=== PATIENT | male | born 1960 | race Caucasian/White ===

== ENCOUNTER 2020-07-02 10:51 | Inpatient (IN) | payer OTHER ==
[~2020-07-02] VITALS: Ht 190.5 cm; Wt 130.5 kg
[~2020-07-02 10:51] MED LIST: ALLO100T PO; LOSA100T8 PO; METO50TA7 PO; OMEP40CA97 PO; WARF-23 PO
[2020-07-02] MEDS ORDERED: methylPREDNISolone 125MG 2ML VIAL IV ONE (11:50)
[2020-07-02 12:23] LABS: BASO # 0.1 10^3/uL (0.0-0.2); BASO % 0.9 % (0.0-1.0); EOS % 0.3 % (0.0-3.0); HEMATOCRIT 50.9 % (42.0-52.0); HEMOGLOBIN 16.8 g/dl (13.5-17.5); LYMPH # 1.8 10^3/uL (1.5-5.0); LYMPH % 20.5 % (24.0-44.0); MEAN CORPUSCULAR HEMOGLOBIN 30.8 pg (27.0-33.0); MEAN CORPUSCULAR VOLUME 93.4 fl (80.0-96.0); MONO # 1.2 10^3/uL (0.0-0.8); MONO % 13.1 % (2.0-8.0); NEUTROPHILS # 5.6 10^3/uL (1.5-8.5); NEUTROPHILS % 63.5 % (36.0-66.0); PLATELET COUNT, AUTOMATED 312 10^3/uL (150-450); RED BLOOD COUNT 5.45 10^6/uL (4.30-6.10); WHITE BLOOD COUNT 8.8 10^3/uL (4.0-10.0)
[2020-07-02] MEDS: COMBIVENT RESPIMAT 100-20MCG INHALER 4GM INH SCH ×3 (12:24→12:45)
[2020-07-02 12:33] LABS: INR 1.26; PROTHROMBIN TIME 16.1 SECONDS (12.5-14.3)
[2020-07-02 12:34] LABS: PARTIAL THROMBOPLASTIN TIME 29.3 SECONDS (24.2-38.5)
[2020-07-02 12:36] LABS: D-DIMER QUANT 387.85 ng/ml (<500)
--- NOTE | 2020-07-02 12:45 | REP ---
INDICATION: DYSPNEA/COUGH COMPARISON: CT dated 06/15/2014 TECHNIQUE: Portable AP view of the chest FINDINGS: Chronic elevation to the right hemidiaphragm along with chronic bibasilar changes again noted. Subtle superimposed atelectasis cannot be excluded. No pneumothorax. No left effusion. Visualized portions of the mediastinum and cardiac silhouette are normal. Skeletal structures are intact. IMPRESSION: Chronic appearing changes. Cannot exclude subtle basilar atelectasis. <Electronically signed by Omega Negro > 07/02/20 [id number]
[2020-07-02 12:53] LABS: ALBUMIN 3.3 GM/DL (3.2-5.2); ALT/SGPT 67 U/L (12-78); BILIRUBIN,TOTAL 0.6 MG/DL (0.2-1.0); BLOOD UREA NITROGEN 14 MG/DL (7-18); CALCIUM LEVEL 9.5 MG/DL (8.5-10.1); CARBON DIOXIDE LEVEL 28 MEQ/L (21-32); CHLORIDE LEVEL 106 MEQ/L (98-107); CREATININE FOR GFR 1.14 MG/DL (0.70-1.30); FERRITIN 733 NG/ML (26-388); GLOMERULAR FILTRATION RATE > 60.0 (>56); GLUCOSE, FASTING 208 MG/DL (70-100); MAGNESIUM LEVEL 1.7 MG/DL (1.8-2.4); POTASSIUM SERUM 4.1 MEQ/L (3.5-5.1); SODIUM LEVEL 139 MEQ/L (136-145); TOTAL PROTEIN 7.2 GM/DL (6.4-8.2)
[2020-07-02 12:55] LABS: ALBUMIN 3.4 GM/DL (3.2-5.2); ALT/SGPT 68 U/L (12-78); BILIRUBIN,DIRECT 0.3 MG/DL (0.0-0.2); BILIRUBIN,TOTAL 0.7 MG/DL (0.2-1.0); BLOOD UREA NITROGEN 13 MG/DL (7-18); CALCIUM LEVEL 9.2 MG/DL (8.5-10.1); CARBON DIOXIDE LEVEL 29 MEQ/L (21-32); CHLORIDE LEVEL 104 MEQ/L (98-107); CK-MB VALUE MASS < 1.0 NG/ML (<3.6); CPK CREATINE PHOSPHOKINASE 42 U/L (39-308); CREATININE FOR GFR 1.15 MG/DL (0.70-1.30); GLOMERULAR FILTRATION RATE > 60.0 (>56); GLUCOSE, FASTING 210 MG/DL (70-100); MB/CK RELATIVE INDEX 2.38 (< OR =4); NT-PRO BNP 37 PG/ML (<125); POTASSIUM SERUM 3.9 MEQ/L (3.5-5.1); SODIUM LEVEL 138 MEQ/L (136-145); TOTAL PROTEIN 7.3 GM/DL (6.4-8.2); TROPONIN I < 0.02 NG/ML (< 0.10)
[2020-07-02] MEDS ORDERED: NS 500 ML IV ONE (13:45)
[2020-07-02] MEDS ORDERED: ISOVUE-370 76% 100ML VIAL As Ordered ONE (14:05)
[2020-07-02] MEDS ORDERED: METF10004 PO (14:20)
[2020-07-02] MEDS ORDERED: VITA1CAP25 PO (14:20)
[2020-07-02] MEDS ORDERED: OMEP-221 PO (14:20)
[2020-07-02] MEDS ORDERED: JANU100T PO (14:20)
[2020-07-02] MEDS ORDERED: LOSA100T50 PO (14:20)
[2020-07-02] MEDS ORDERED: ICOS1CAP PO (14:20)
[2020-07-02] MEDS ORDERED: XARE20TA PO (14:20)
[2020-07-02] MEDS ORDERED: ZYLO300T6 PO (14:20)
--- NOTE | 2020-07-02 14:56 | REP ---
INDICATION: hx pe, COVID + COMPARISON: None. TECHNIQUE: Axial contrast enhanced images from the thoracic inlet to the upper abdomen using pulmonary embolus technique with multiplanar re-formations. 75 ml Isovue 370 intravenous contrast material administered without complication. This CT examination was performed using the following dose reduction techniques: Automated exposure control, adjustment of mA and/or kv according to the patient's size, and use of iterative reconstruction technique. FINDINGS: Examination is suboptimal for the evaluation of pulmonary embolus. Somewhat ill-defined areas of consolidation, atelectasis and airspace disease are identified in the basilar right upper lobe, adjacent right middle lobe, and bilateral lower lobes (right greater than left). No effusion. No pneumothorax. Tracheobronchial tree is patent. No obvious significant adenopathy. No cardiomegaly. Thoracic aorta without aneurysm or dissection. Musculoskeletal structures without acute osseous abnormality. IMPRESSION: Somewhat ill-defined areas of airspace disease noted bilaterally (right greater than left). Findings consistent with COVID-19 pulmonary viral infection. <Electronically signed by Omega Negro > 07/02/20 [id number]
[2020-07-02] MEDS ORDERED: GLUCOSE 4GM CHEW TABLET PO PRN (15:00)
[2020-07-02] MEDS ORDERED: MAG SULF 1GM/100ML (MAG RUN) 1 GM in IV 1 EA IV ONE (15:00)
[2020-07-02] MEDS ORDERED: DEXTROSE 50% 50 ML SYRINGE IV PRN (15:00)
[2020-07-02] MEDS ORDERED: GLUCAGON INJ 1MG VIAL SC PRN (15:00)
[2020-07-02 15:27] LABS: VENOUS BASE EXCESS 1.2 (-2.0-2.0); VENOUS HCO3 27.1 MEQ/L (23.0-27.0); VENOUS O2 SATURATION 69.5 % (60.0-80.0); VENOUS PARTIAL PRESSURE CO2 47.2 mmHg (38.0-50.0); VENOUS PARTIAL PRESSURE O2 35.8 mmHg (30.0-50.0); VENOUS PH 7.377 UNITS (7.330-7.430); VENOUS STANDARD HCO3 24.7 MEQ/L; VENOUS TOTAL CO2 28.6 MEQ/L (24.0-28.0)
--- NOTE | 2020-07-02 16:08 | HPEPDOC ---
[facility] Medical History & Physical Date of Admission Jul 02, 2020 Date of Service: Jul 02, 2020 History and Physical Chief complaint: Presented to ER with a positive COVID-19 test from urgent care History of present illness: Patient is a 60-year-old male who presented to the emergency room, sent in by urgent care after he was found to have positive COVID-19 test. Patient reports that he has been feeling fatigued, congested and experiencing a runny nose since 06/29. Patient ultimately went in for testing this morning at [facility] Urgent care on [facility]. Patient was found to have a positive test and was advised to go to the ER for further evaluation. Currently patient denies any chest pain or palpitations. Denies any shortness of breath. Reports a productive cough with yellow sputum without any blood tinge. Denies any nausea, vomiting, abdominal pain. Does report diarrhea has reported 3 bowel movements today that small and loose. Denies any urinary discomfort. Has not experience any fevers or chills. Reports that his appetite is poor but has not experienced any recent changes in his weight. 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 Thrombotic thrombocytopenic purpura Gout Obesity GERD Past Surgical History: Splenectomy Hernia repair Cholecystectomy Appendectomy Allergies: See below Medications: See below Family History: - Mother with a history of lung cancer Social History: - Denies the use of alcohol, tobacco or illicit drugs - Denies recent travel or sick contacts - Lives with - Occupation; patient reports that he works at [employer] Review of Systems: 10 point review of systems complete, all negative otherwise stated in HPI Physical exam: - Vitals: BP [131/85], HR [129], RR [18], Sat [90%RA], Temp [98.6F] - General: Lying in bed, No acute distress, Speaking in full sentences, AAOx3 - HEENT: NC, AT, PERRLA - CVS: RRR, +S1S2, - Murmurs / rubs / gallops - Lungs: Fair air entry bilaterally, No appreciable wheezing / rales / rhonchi - Abdomen: Soft, Non-distended, Non-tender, Obese - Extremities: No lower extremity edema, No calf tenderness - Neuro: No focal motor or sensory deficit - Skin: No visible rashes Labs: See below Imaging: CXR 07/02: Chronic appearing changes. Cannot exclude subtle basilar atelectasis. CTA chest 07/02: Somewhat ill-defined areas of airspace disease noted bilaterally (right greater than left). Findings consistent with COVID-19 pulmonary viral infection. EKG: See below Assessment and Plan: Shortness of breath - likely 2/2 COVID19 pneumonia, less likely 2/2 superimposed bacterial pneumonia - Presented to the ER, sent in by Urgent care for COVID19 positive test - Patient has been short of breath with exertion - Upon a relation patient was found to have a saturation of 86% - COVID-19 positive on 07/02/2020 - Inflammatory markers slightly elevated - Imaging noted above - Will start Dexamethasone (Day #1) - Will start Remdesivir (Day #1) - Will start Ceftriaxone and Doxycycline (Day #1); will trend procalcitonin - Will start Incentive spirometry / Acapella / Mucinex HTN - BP well controlled currently - c/w Losartan and Metoprolol with holding parameters NIDDM2 - Will start ISS PE/DVT (06/2014) - Will c/w Xarelto Thrombotic thrombocytopenic purpura Gout - c/w Allopurinol Obesity - BMI of 35.8 - Complicating medical care GERD - Will start Protonix DVT prophylaxis - Will c/w Xarelto Vital Signs Vital Signs Date Time Temp Pulse Resp B/P (MAP) Pulse Ox O2 Delivery O2 Flow Rate FiO2 07/02/20 11:38 100.0 125 22 135/85 (102) 91 Room Air Laboratory Data Labs 24H Laboratory Tests 2 07/02/20 11:57: Immature Granulocyte % (Auto) 1.7, Neutrophils (%) (Auto) 63.5, Lymphocytes (%) (Auto) 20.5L, Monocytes (%) (Auto) 13.1H, Eosinophils (%) (Auto) 0.3, Basophils (%) (Auto) 0.9, Neutrophils # (Auto) 5.6, Lymphocytes # (Auto) 1.8, Monocytes # (Auto) 1.2H, Eosinophils # (Auto) 0.0, Basophils # (Auto) 0.1, Nucleated Red Blood Cells % (auto) 0.0, Prothrombin Time 16.1H, Prothromb Time International Ratio 1.26, Activated Partial Thromboplast Time 29.3, Fibrinogen 565H, D-Dimer, Quantitative 387.85, Anion Gap 5L, Glomerular Filtration Rate > 60.0, Lactic Acid Level 1.6, Calcium Level 9.5, Magnesium Level 1.7L, Ferritin 733H, Total Bilirubin 0.6, Direct Bilirubin 0.3H, Aspartate Amino Transf (AST/SGOT) 39H, Alanine Aminotransferase (ALT/SGPT) 67, Alkaline Phosphatase 76, Total Creatine Kinase 42, Creatine Kinase MB < 1.0, Creatine Kinase MB Relative Index 2.38, Tro ponin I < 0.02, C-Reactive Protein, Quantitative 4.80H, YW-Yff-F-Type Natriuretic Peptide 37, Total Protein 7.2, Albumin 3.3, Albumin/Globulin Ratio 0.8 07/02/20 15:16: Blood Gas Bicarbonate Standard 24.7, Venous Blood pH 7.377, Venous Blood Partial Pressure CO2 47.2, Venous Blood Partial Pressure O2 35.8, Venous Blood Total Carbon Dioxide 28.6H, Venous Blood HCO3 27.1H, Venous Blood Oxygen Saturation 69.5, Venous Blood Base Excess 1.2 CBC/BMP Laboratory Tests 07/02/20 11:57 Microbiology Microbiology 07/02/20 Blood Culture, Received Pending Home Medications Scheduled Allopurinol (Zyloprim) 300 Mg Tablet, 300 MG PO QHS Cholecalciferol (Vitamin D3) (Vitamin D3) 1,250 Mcg Capsule, 1,250 MCG PO 1XWK WEDNESDAYS Losartan Potassium (Losartan Potassium) 100 Mg Tablet, 100 MG PO DAILY Metformin HCl (Metformin HCl) 1,000 Mg Tablet, 1,000 MG PO BID Metoprolol Tartrate (Metoprolol Tartrate) 50 Mg Tab, 50 MG PO BID Rivaroxaban (Xarelto) 20 Mg Tablet, 20 MG PO QHS Sitagliptin Phosphate (Januvia) 100 Mg Tablet, 100 MG PO DAILY icosapent ethyL (icosapent ethyL) 1 Gram Capsule, 1 GM PO BID Allergies Coded Allergies: No Known Allergies (Unverified , 05/19/14) MILLIE RYAN MD Jul 02, 2020 16:08
[2020-07-02 16:45] VITALS: BP 136/77
[2020-07-02] MEDS ORDERED: ACETAMINOPHEN TAB 650MG DOSE (2X325MG) PO PRN (16:55)
[2020-07-02] MEDS: PANTOPRAZOLE 40MG TAB (PROTONIX) PO SCH (17:13)
[2020-07-02] MEDS: LOSARTAN 50MG TABLET PO SCH (17:13)
[2020-07-02] MEDS ORDERED: SODIUM CHLORIDE 0.9% INJ 10 ML SYR IV ONE (18:00)
[2020-07-02] MEDS ORDERED: REMDESIVIR 200 MG in NS 250 ML IV ONE (18:00)
[2020-07-02] MEDS: HumaLOG INSULIN (NovoLOG) PER UNIT SC SCH ×2 (18:17→20:26)
--- NOTE | 2020-07-02 19:36 | ECGEPIP ---
[facility] - ED Test Date: 2020-07-02 Pat Name: SHARMILA HERNÁNDEZ Department: Room: - Gender: Male Copy Writer: : 1960 Requested By: Alexys Adan Order Number: [id number] Reading MD: Alexys Adan Measurements Intervals [place] Rate: 125 P: 34 OK: 160 QRS: 269 QRSD: 100 T: 1 QT: 314 QTc: 453 Interpretive Statements Sinus tachycardia Right superior axis deviation Inferior infarct , age undetermined Cannot rule out Anterior infarct , age undetermined NONSPECIFIC ST T WAVE CHANGES cw 05/19/[address] T [facility] Electronically Signed on 07-02-2020 19:36:59 EST by Alexys Adan
[2020-07-02 20:05] VITALS: BP 133/68
[2020-07-02] MEDS: guaiFENesin ER 600 MG TAB PO SCH (20:07)
[2020-07-02] MEDS: METOPROLOL TART 50 MG TAB PO SCH (20:07)
[2020-07-02] MEDS: RIVAROXABAN 20 MG TAB (XARELTO) PO SCH (20:19)
[2020-07-02] MEDS: cefTRIAXone SOD 1 GM in D5W MINI-BAG PLUS 50 ML IV SCH (21:49)
[2020-07-02] MEDS: allopurinoL 300 MG TAB PO SCH (21:50)
[2020-07-02] MEDS: DOXYCYCLINE HYCLATE 100 MG in D5W MINI-BAG PLUS 100 ML IV SCH (22:32)
[2020-07-02 23:47] VITALS: BP 146/77
[2020-07-03 04:00] VITALS: BP 149/78
[2020-07-03 07:47] LABS: BASO % 0.3 % (0.0-1.0); HEMATOCRIT 48.4 % (42.0-52.0); HEMOGLOBIN 16.2 g/dl (13.5-17.5); LYMPH # 1.4 10^3/uL (1.5-5.0); LYMPH % 18.8 % (24.0-44.0); MEAN CORPUSCULAR HGB CONC 33.5 g/dl (32.0-36.5); MEAN CORPUSCULAR VOLUME 92.5 fl (80.0-96.0); MONO # 0.9 10^3/uL (0.0-0.8); MONO % 12.8 % (2.0-8.0); NEUTROPHILS # 4.9 10^3/uL (1.5-8.5); NEUTROPHILS % 67.1 % (36.0-66.0); PLATELET COUNT, AUTOMATED 316 10^3/uL (150-450); RED BLOOD COUNT 5.23 10^6/uL (4.30-6.10); WHITE BLOOD COUNT 7.3 10^3/uL (4.0-10.0)
[2020-07-03 08:00] VITALS: BP 144/75
[2020-07-03 08:24] LABS: INR 1.64; PROTHROMBIN TIME 19.8 SECONDS (12.5-14.3)
[2020-07-03 08:26] LABS: ALBUMIN 3.1 GM/DL (3.2-5.2); ALT/SGPT 54 U/L (12-78); BILIRUBIN,DIRECT 0.2 MG/DL (0.0-0.2); BILIRUBIN,TOTAL 0.4 MG/DL (0.2-1.0); BLOOD UREA NITROGEN 19 MG/DL (7-18); CALCIUM LEVEL 8.8 MG/DL (8.5-10.1); CARBON DIOXIDE LEVEL 26 MEQ/L (21-32); CHLORIDE LEVEL 104 MEQ/L (98-107); CPK CREATINE PHOSPHOKINASE 42 U/L (39-308); CREATININE FOR GFR 1.07 MG/DL (0.70-1.30); FERRITIN 768 NG/ML (26-388); GLOMERULAR FILTRATION RATE > 60.0 (>56); GLUCOSE, FASTING 275 MG/DL (70-100); MAGNESIUM LEVEL 1.9 MG/DL (1.8-2.4); NT-PRO BNP 124 PG/ML (<125); POTASSIUM SERUM 4.2 MEQ/L (3.5-5.1); SODIUM LEVEL 138 MEQ/L (136-145); TOTAL PROTEIN 6.9 GM/DL (6.4-8.2)
[2020-07-03] MEDS: DOXYCYCLINE HYCLATE 100 MG in D5W MINI-BAG PLUS 100 ML IV SCH ×2 (08:47→20:58)
[2020-07-03] MEDS: dexameTHASONE 4 MG/ML 1ML VIAL (J1100 PER 1MG) IV SCH (08:48)
[2020-07-03] MEDS: PANTOPRAZOLE 40MG TAB (PROTONIX) PO SCH (08:49)
[2020-07-03] MEDS: guaiFENesin ER 600 MG TAB PO SCH ×2 (08:49→19:38)
[2020-07-03] MEDS: HumaLOG INSULIN (NovoLOG) PER UNIT SC SCH ×4 (08:49→19:51)
[2020-07-03] MEDS: METOPROLOL TART 50 MG TAB PO SCH ×2 (08:50→19:39)
[2020-07-03] MEDS: LOSARTAN 50MG TABLET PO SCH (08:50)
[2020-07-03 09:00] LABS: C REACTIVE PROTEIN QUANTITATIV 5.43 MG/DL (0.00-0.30)
[2020-07-03] MEDS ORDERED: SODIUM CHLORIDE 0.9% INJ 10 ML SYR IV SCH (09:00)
--- NOTE | 2020-07-03 11:59 | IPNPDOC ---
Text Note Date of Service The patient was seen on 07/03/20. NOTE Subjective: Patient is a 60-year-old male who presented to the emergency room, sent in by urgent care after he was found to have positive COVID-19 test. P atient reports that he has been feeling fatigued, congested and experiencing a runny nose since 06/29. Patient ultimately went in for testing this morning at [facility] Urgent care on [facility]. Patient was found to have a positive test and was advised to go to the ER for further evaluation. Upon arrival to emergency room, patient was noted saturations of about 90% at room air, and ambulatory hypoxia at 86%. He was admitted to the hospital service for further evaluation and treatment. Patient was seen and examined at the bedside. Currently reports his breathing is doing better. Reports a mild cough. Denies any nausea, vomiting, abdominal pain, diarrhea, or discomfort with urination. Objective: Vitals (See below) General: Lying in bed, appears comfortable, AAOx3 HEENT: NC, AT CVS: +S1S2 Lungs: Fair air entry b/l, there appears to be no wheezing, rhonchi or rales Abdomen: Soft, ND, NT, Obese Extremities: - Edema, - Calf tenderness Imaging: CXR 07/02: Chronic appearing changes. Cannot exclude subtle basilar atelectasis. CTA chest 07/02: Somewhat ill-defined areas of airspace disease noted bilaterally (right greater than left). Findings consistent with COVID-19 pulmonary viral infection. Assessment and plan: Shortness of breath - likely 2/2 COVID19 pneumonia, less likely 2/2 superimposed bacterial pneumonia - Presented to the ER, sent in by Urgent care for COVID19 positive test - Reports his breathing is doing better - Saturating well on 2 L NC - COVID-19 positive on 07/02/2020 - Inflammatory markers remain slightly elevated - Imaging noted above - c/w Dexamethasone (Day #2) - c/w Remdesivir (Day #2) - c/w Ceftriaxone and Doxycycline (Day #2); PCT trending down - c/w Incentive spirometry / Acapella / Mucinex HTN - BP well controlled currently - c/w Losartan and Metoprolol with holding parameters NIDDM2 - c/w ISS PE/DVT (06/2014) - c/w Xarelto Thrombotic thrombocytopenic purpura Gout - c/w Allopurinol Obesity - BMI of 35.8 - Complicating medical care GERD - c/w Protonix DVT prophylaxis - c/w Xarelto VS,Fishbone, I+O VS, Fishbone, I+O Laboratory Tests 07/02/20 11:57 07/03/20 06:56 Vital Signs Date Time Temp Pulse Resp B/P (MAP) Pulse Ox O2 Delivery O2 Flow Rate FiO2 07/03/20 10:37 93 Room Air 07/03/20 08:50 101 144/75 07/03/20 08:00 97.5 19 3.0 I&O- Last 24 Hours up to 6 AM 07/03/20 06:00 Intake Total 2160 ml Output Total 975 ml Balance 1185 ml MILLIE RYAN MD Jul 03, 2020 11:59
[2020-07-03 12:00] VITALS: BP 114/68
[2020-07-03 16:15] VITALS: BP 118/73
[2020-07-03] MEDS ORDERED: REMDESIVIR 100 MG in NS 250 ML IV SCH (18:00)
[2020-07-03] MEDS: cefTRIAXone SOD 1 GM in D5W MINI-BAG PLUS 50 ML IV SCH (19:37)
[2020-07-03] MEDS: RIVAROXABAN 20 MG TAB (XARELTO) PO SCH (19:38)
[2020-07-03] MEDS: allopurinoL 300 MG TAB PO SCH (19:38)
[2020-07-03 20:00] VITALS: BP 158/79
[2020-07-04 05:02] VITALS: BP 135/70
[2020-07-04 06:34] LABS: BASO # 0.1 10^3/uL (0.0-0.2); BASO % 0.5 % (0.0-1.0); HEMATOCRIT 45.8 % (42.0-52.0); HEMOGLOBIN 15.4 g/dl (13.5-17.5); LYMPH # 2.4 10^3/uL (1.5-5.0); LYMPH % 15.8 % (24.0-44.0); MEAN CORPUSCULAR HEMOGLOBIN 31.1 pg (27.0-33.0); MEAN CORPUSCULAR HGB CONC 33.6 g/dl (32.0-36.5); MEAN CORPUSCULAR VOLUME 92.5 fl (80.0-96.0); MONO # 1.5 10^3/uL (0.0-0.8); MONO % 9.5 % (2.0-8.0); NEUTROPHILS # 11.2 10^3/uL (1.5-8.5); NEUTROPHILS % 73.2 % (36.0-66.0); PLATELET COUNT, AUTOMATED 329 10^3/uL (150-450); RED BLOOD COUNT 4.95 10^6/uL (4.30-6.10)
[2020-07-04 06:35] LABS: WHITE BLOOD COUNT 15.3 10^3/uL (4.0-10.0)
[2020-07-04 06:42] LABS: INR 1.77
[2020-07-04 06:43] LABS: PARTIAL THROMBOPLASTIN TIME 31.3 SECONDS (24.2-38.5)
[2020-07-04 07:05] LABS: ALBUMIN 2.9 GM/DL (3.2-5.2); ALT/SGPT 46 U/L (12-78); BILIRUBIN,DIRECT 0.2 MG/DL (0.0-0.2); BILIRUBIN,TOTAL 0.5 MG/DL (0.2-1.0); BLOOD UREA NITROGEN 26 MG/DL (7-18); C REACTIVE PROTEIN QUANTITATIV 2.83 MG/DL (0.00-0.30); CALCIUM LEVEL 8.8 MG/DL (8.5-10.1); CARBON DIOXIDE LEVEL 26 MEQ/L (21-32); CHLORIDE LEVEL 105 MEQ/L (98-107); CPK CREATINE PHOSPHOKINASE 42 U/L (39-308); CREATININE FOR GFR 1.04 MG/DL (0.70-1.30); FERRITIN 782 NG/ML (26-388); GLOMERULAR FILTRATION RATE > 60.0 (>56); GLUCOSE, FASTING 198 MG/DL (70-100); MAGNESIUM LEVEL 1.7 MG/DL (1.8-2.4); NT-PRO BNP 80 PG/ML (<125); SODIUM LEVEL 138 MEQ/L (136-145); TOTAL PROTEIN 6.4 GM/DL (6.4-8.2)
[2020-07-04] MEDS ORDERED: MUCI600T31 PO (07:41)
[2020-07-04] MEDS ORDERED: PRED10TA2 PO (07:41)
[2020-07-04] MEDS ORDERED: CEFD300CAP PO (07:41)
[2020-07-04] MEDS ORDERED: PANT40TA29 PO (07:41)
[2020-07-04] MEDS ORDERED: DOXY-350 PO (07:41)
[2020-07-04 08:00] VITALS: O2SAT 93
[2020-07-04] MEDS ORDERED: MAG SULF 1GM/100ML (MAG RUN) 1 GM in IV 1 EA IV ONE (08:00)
[2020-07-04 08:02] VITALS: BP 142/71
[2020-07-04] MEDS: DOXYCYCLINE HYCLATE 100 MG in D5W MINI-BAG PLUS 100 ML IV SCH (08:32)
[2020-07-04] MEDS: dexameTHASONE 4 MG/ML 1ML VIAL (J1100 PER 1MG) IV SCH (08:34)
[2020-07-04] MEDS: HumaLOG INSULIN (NovoLOG) PER UNIT SC SCH (08:34)
[2020-07-04] MEDS: PANTOPRAZOLE 40MG TAB (PROTONIX) PO SCH (08:34)
[2020-07-04] MEDS: guaiFENesin ER 600 MG TAB PO SCH (08:35)
[2020-07-04] MEDS: LOSARTAN 50MG TABLET PO SCH (08:35)
[2020-07-04 08:36] VITALS: BP 138/62
[2020-07-04] MEDS: METOPROLOL TART 50 MG TAB PO SCH (08:36)
--- NOTE | 2020-07-04 10:31 | DS.PDOC ---
Discharge Summary General Date of Admission Jul 02, 2020 at 14:57 Date of Discharge 07/04/2020 Discharge Summary PROCEDURES PERFORMED DURING STAY: [None]. ADMITTING DIAGNOSES / DISCHARGE DIAGNOSES: Shortness of breath - likely 2/2 COVID19 pneumonia, less likely 2/2 superimposed bacterial pneumonia HTN NIDDM2 PE/DVT (06/2014) Thrombotic thrombocytopenic purpura Gout Obesity GERD DVT prophylaxis COMPLICATIONS/CHIEF COMPLAINT: Shortness of breath / Fatigue HISTORY OF PRESENT ILLNESS: Patient is a 60-year-old male who presented to the emergency room, sent in by urgent care after he was found to have positive COVID-19 test. Patient reports that he has been feeling fatigued, congested and experiencing a runny nose since 06/29. Patient ultimately went in for testing this morning at [facility] Urgent care on [facility]. Patient was found to have a positive test and was advised to go to the ER for further evaluation. Upon arrival to emergency room, patient was noted saturations of about 90% at room air, and ambulatory hypoxia at 86%. He was admitted to the hospital service for further evaluation and treatment. Patient was seen and examined at the bedside. Patient reports that his breathing is doing better. Rai any CP, SOB or palpitations. Denies any N/V, abdominal pain, C/D or urinary discomfort. HOSPITAL COURSE: Shortness of breath - likely 2/2 COVID19 pneumonia, less likely 2/2 superimposed bacterial pneumonia - Reports that he is not experiencing any SOB, reports a mild cough - Saturating well on room air - COVID-19 positive on 07/02/2020 - Inflammatory markers remain slightly elevated - Imaging noted above - c/w Dexamethasone (Day #3); will provide Prednisone taper on discharge - c/w Remdesivir (Day #3) - will discontinue on discharge - c/w Ceftriaxone and Doxycycline (Day #3); PCT improving - will complete antibiotic course as an outpatient with Cefdinir / Doxycycline PO - c/w Incentive spirometry / Acapella / Mucinex - Will have outpatient follow up within 7 days HTN - BP well controlled currently - c/w Losartan and Metoprolol with holding parameters NIDDM2 - c/w ISS PE/DVT (06/2014) - c/w Xarelto Thrombotic thrombocytopenic purpura Gout - c/w Allopurinol Obesity - BMI of 35.8 - Complicating medical care GERD - c/w Protonix DVT prophylaxis - c/w Xarelto DISCHARGE MEDICATIONS: Please see below. ALLERGIES: Please see below. PHYSICAL EXAMINATION ON DISCHARGE: Vitals (See below) General: Sitting up in bed, appears comfortable, not in any acute distress, AAOx3 HEENT: Normocephalic and atraumatic CVS: +S1S2 Lungs: There appears to be fair air entry bilaterally, without evidence of crackles, wheezing, rhonchi Abdomen: Soft, obese, nondistended, nontender Extremities: No evidence of LE edema, - Calf tenderness LABORATORY DATA: Please see below. IMAGING: CXR 07/02: Chronic appearing changes. Cannot exclude subtle basilar atelectasis. CTA chest 07/02: Somewhat ill-defined areas of airspace disease noted bilaterally (right greater than left). Findings consistent with COVID-19 pulmonary viral infection. ACTIVITY: [As tolerated]. DISCHARGE PLAN: Follow up with PCP within 8 days Remain compliant with treatment plan and medications Return to the ER if you experience any problems DISPOSITION: Home with services DISCHARGE CONDITION: [Stable]. TIME SPENT ON DISCHARGE: 35 minutes. Vital Signs/I&Os Vital Signs Date Time Temp Pulse Resp B/P (MAP) Pulse Ox O2 Delivery O2 Flow Rate FiO2 07/04/20 08:36 93 138/62 07/04/20 08:02 98.7 17 93 Room Air 07/03/20 08:00 3.0 I&O- Last 24 Hours up to 6 AM 07/04/20 05:59 Intake Total 2620 ml Output Total 2450 ml Balance 170 ml Laboratory Data Labs 24H Laboratory Tests 2 07/03/20 11:31: Bedside Glucose (Misc Panel) 255H 07/03/20 16:53: Bedside Glucose (Misc Panel) 311H 07/03/20 19:40: Bedside Glucose (Misc Panel) 293H 07/04/20 06:13: Immature Granulocyte % (Auto) 1.0, Neutrophils (%) (Auto) 73.2H, Lymphocytes (%) (Auto) 15.8L, Monocytes (%) (Auto) 9.5H, Eosinophils (%) (Auto) 0.0, Basophils (%) (Auto) 0.5, Neutrophils # (Auto) 11.2H, Lymphocytes # (Auto) 2.4, Monocytes # (Auto) 1.5H, Eosinophils # (Auto) 0.0, Basophils # (Auto) 0.1, Nucleated Red Blood Cells % (auto) 0.0, Prothrombin Time 21.0H, Prothromb Time International Ratio 1.77, Activated Partial Thromboplast Time 31.3, Fibrinogen 449, Anion Gap 7L, Glomerular Filtration Rate > 60.0, Calcium Level 8.8, Magnesium Level 1.7L, Ferritin 782H, Total Bilirubin 0.5, Direct Bilirubin 0.2, Aspartate Amino Transf (AST/SGOT) 17, Alanine Aminotransferase (ALT/SGPT) 46, Alkaline Phosphatase 70, Total Creatine Kinase 42, C-Reactive Protein, Quantitative 2.83H, BH-Dtp-L-Type Natriuretic Peptide 80, Total Protein 6.4, Albumin 2.9L, Albumin/Globulin Ratio 0.8, Procalcitonin 0.06 CBC/BMP Laboratory Tests 07/04/20 06:13 FSBS Laboratory Tests Test 07/03/20 11:31 07/03/20 16:53 07/03/20 19:40 Range/Units Bedside Glucose (Misc Panel) 255 311 293 70-105 MG/DL Microbiology Microbiology 07/02/20 Blood Culture - Preliminary, Resulted No growth after 24 hours . All specim... Discharge Medications Scheduled Allopurinol (Zyloprim) 300 Mg Tablet, 300 MG PO QHS, (Reported) Cefdinir (Cefdinir) 300 Mg Capsule, 1 CAP PO BID Cholecalciferol (Vitamin D3) (Vitamin D3) 1,250 Mcg Capsule, 1,250 MCG PO 1XWK, (Reported) WEDNESDAYS Doxycycline Monohydrate (Doxycycline) 100 Mg Capsule, 1 CAP PO BID Guaifenesin (Mucinex) 600 Mg Tab.er.12h, 600 MG PO BID Losartan Potassium (Losartan Potassium) 100 Mg Tablet, 100 MG PO DAILY, (Reported) Metformin HCl (Metformin HCl) 1,000 Mg Tablet, 1,000 MG PO BID, (Reported) Metoprolol Tartrate (Metoprolol Tartrate) 50 Mg Tab, 50 MG PO BID, (Reported) Pantoprazole Sodium (Pantoprazole Sodium) 40 Mg Tablet.dr, 40 MG PO DAILY Prednisone (Prednisone) 10 Mg Tablet, 10 MG PO TAPER Take 4 tabs daily x 3 days, then 3 tabs daily x 3 days, then 2 tabs daily x 3 days, then 1 tab daily x 3 days and stop Rivaroxaban (Xarelto) 20 Mg Tablet, 20 MG PO QHS, (Reported) Sitagliptin Phosphate (Januvia) 100 Mg Tablet, 100 MG PO DAILY, (Reported) icosapent ethyL (icosapent ethyL) 1 Gram Capsule, 1 GM PO BID, (Reported) Allergies Coded Allergies: No Known Allergies (Unverified , 05/19/14) MILLIE RYAN MD Jul 04, 2020 10:30
== END 2020-07-04 11:55 | disposition home or self-care (01) | DRG 137 ==
LOC: M ED 10:51 → M ED INP 14:57 → M 4MAIN 16:38
PROVIDERS: ADMIT Internal Medicine; ATTEND Internal Medicine
PROC: XW033E5 Introduction of Remdesivir Anti-infective into Peripheral Vein, Percutaneous Approach, New Technology Group 5 (ICD-10-PCS; principal; 2020-07-02)
PROC: 3E0333Z Introduction of Anti-inflammatory into Peripheral Vein, Percutaneous Approach (ICD-10-PCS; 2020-07-02)
DX: U07.1 COVID-19 (principal); M31.1 Thrombotic microangiopathy; J12.82 Pneumonia due to coronavirus disease 2019; I10 Essential (primary) hypertension; E11.9 Type 2 diabetes mellitus without complications; M10.9 Gout, unspecified; E66.9 Obesity, unspecified; K21.9 Gastro-esophageal reflux disease without esophagitis; Z90.49 Acquired absence of other specified parts of digestive tract; Z86.711 Personal history of pulmonary embolism; Z86.718 Personal history of other venous thrombosis and embolism; Z68.35 Body mass index [BMI] 35.0-35.9, adult

== ENCOUNTER → 2021-07-10 | Outpatient (REF) ==
[~2021-07-10] MED LIST changes: +CEFD300CAP PO; +DOXY-350 PO; +ICOS1CAP PO; +JANU100T PO; +LOSA100T45 PO; +METF10004 PO; +MUCI600T31 PO; +OMEP40CA4 PO; +OMEP40CA5 PO; -OMEP40CA97 PO; +PANT40TA29 PO; +PRED10TA2 PO; +VITA1CAP25 PO; +XARE20TA PO; +ZYLO300T6 PO
== END ==
LOC: M PLAIMG 12:09
PROVIDERS: ATTEND Internal Medicine
DX: M47.817 Spondylosis without myelopathy or radiculopathy, lumbosacral region (principal)

== ENCOUNTER → 2022-05-30 | Outpatient (REF) | payer BC ==
[~2022-05-30] MED LIST changes: -DOXY-350 PO; +DOXY-444 PO
[2022-05-30 13:25] LABS: BASO # 0.1 10^3/uL (0.0-0.2); BASO % 1.3 % (0.0-1.0); EOS # 0.3 10^3/uL (0.0-0.5); EOS % 2.8 % (0.0-3.0); HEMATOCRIT 48.2 % (42.0-52.0); HEMOGLOBIN 15.7 g/dl (13.5-17.5); LYMPH % 28.2 % (24.0-44.0); MEAN CORPUSCULAR HEMOGLOBIN 31.1 pg (27.0-33.0); MEAN CORPUSCULAR HGB CONC 32.6 g/dl (32.0-36.5); MEAN CORPUSCULAR VOLUME 95.4 fl (80.0-96.0); MONO # 1.2 10^3/uL (0.0-0.8); MONO % 11.6 % (2.0-8.0); NEUTROPHILS # 5.7 10^3/uL (1.5-8.5); NEUTROPHILS % 54.7 % (36.0-66.0); PLATELET COUNT, AUTOMATED 404 10^3/uL (150-450); RED BLOOD COUNT 5.05 10^6/uL (4.30-6.10); WHITE BLOOD COUNT 10.5 10^3/uL (4.0-10.0)
[2022-05-30 13:35] LABS: ERYTHROCYTE SEDIMENTATION RATE 30 mm/hr (0-20)
[2022-05-30 13:55] LABS: ALBUMIN 3.8 G/DL (3.2-5.2); ALKALINE PHOSPHATASE 66 U/L (46-116); ALT/SGPT 67 U/L (7.0-40); AST/SGOT 53 U/L (<34); BILIRUBIN,TOTAL 0.5 MG/DL (0.3-1.2); BLOOD UREA NITROGEN 18 MG/DL (9-23); CALCIUM LEVEL 9.1 MG/DL (8.3-10.6); CARBON DIOXIDE LEVEL 27 MMOL/L (20-31); CHLORIDE LEVEL 102 MMOL/L (98-107); CREATININE FOR GFR 1.01 MG/DL (0.70-1.30); GLOMERULAR FILTRATION RATE > 60.0 (>49); GLUCOSE, FASTING 134 MG/DL (74-106); POTASSIUM SERUM 4.4 MMOL/L (3.5-5.1); SODIUM LEVEL 138 MMOL/L (136-145); TOTAL PROTEIN 7.3 G/DL (5.7-8.2)
[2022-05-31 18:22] LABS: CYCLIC CITRULLINATED PEPTIDE 9 units (0-19); SSA SJOGRENS A <0.2 AI (0.0-0.9); SSB SJOGRENS B <0.2 AI (0.0-0.9)
== END ==
LOC: M SFHCRHEU 08:31
PROVIDERS: ATTEND Internal Medicine Rheumatology
DX: M25.50 Pain in unspecified joint (principal); M1A.09X0 Idiopathic chronic gout, multiple sites, without tophus (tophi); R68.2 Dry mouth, unspecified

== ENCOUNTER → 2022-07-11 | Outpatient (REF) | payer BC ==
[2022-07-11 12:29] LABS: POTASSIUM SERUM 4.6 MMOL/L (3.5-5.1)
== END ==
LOC: M LAB REF 12:06
PROVIDERS: ATTEND Internal Medicine Nephrology
DX: I10 Essential (primary) hypertension (principal)